=== PATIENT | female | born 1990 | race Caucasian/White ===

== ENCOUNTER 2021-01-23 01:01 | Emergency (ER) | payer OTHER, SELFPAY ==
--- NOTE | ~2021-01-23 | CT_ITS ---
EXAMINATION: CT abdomen pelvis w con DATE: 01/23/2021 06:20 INDICATION: Right lower quadrant abdominal pain TECHNIQUE: Computed tomography (CT) of the abdomen and pelvis was performed with 100 cc Omnipaque 350 intravenous contrast. Automated exposure control and iterative reconstruction technique were employe d. Exam dose: 209.98 mGy-cm total exam DLP. COMPARISON: None. FINDINGS: Right lower lobe calcified pulmonary granuloma. The lung bases are clear of infiltrate or c onsolidation. Normal heart size. No pericardial or pleural effusion. The liver, gallbladder, bile ducts, pancreas, pancreatic duct, spleen, adrenal glands are unremarkabl e. Very small right renal cyst. Approximately 2 mm nonobstructing left kidney stone. No suspicious renal mass lesion. No ureteral siena culus or hydroureteronephrosis is evident. The uterus and urinary bladder are unremarkable. 2.5 x 4.6 cm peripherally enhancing right ovarian cyst. Up to 2.1 cm left ovarian cyst. There is mild free fluid in the right adnexal area and anterior and posterior cul-de-sacs, likely due to ruptured right ovarian cyst. No bowel obstruction. No intraperitoneal free air. Included skeletal structures are unremarkable. IMPRESSION: Ruptured right up to 4.6 cm ovarian cyst with mild free fluid in the pelvis 2.1 cm left ovarian cyst Small nonobstructing left kidney stone Very small right renal cyst Reviewed, dictated and finalized at [facility]. Reviewed, dictated and finalized at [facility]. IMPRESSION: Ruptured right up to 4.6 cm ovarian cyst with mild free fluid in t he pelvis 2.1 cm left ovarian cyst Small nonobstructing left kidney stone Very small right renal cyst
--- NOTE | ~2021-01-23 | US_ITS ---
US pelvic complete DATE: 01/23/2021 04:18 INDICATION: Right pelvic pain TECHNIQUE: Real-time imaging via transabdominal and transvaginal approaches COMPARISON: 01/23/2021 CT abdomen pelvis FINDINGS: The uterus measures 8.3 cm height, 3.5 cm AP dimension. The central endometrial echo measur es 6 mm AP dimension. Up to 2.1 cm left ovarian cyst. Up to 3.5 cm right ovarian cyst is suggested. Vascular flow to both o varies is documented on Doppler color flow imaging. No free pelvic fluid is noted. IMPRESSION: Bilateral ovarian cysts Reviewed, dictated and finalized at [facility]. Reviewed, dictated and finalized at [facility]. IMPRESSION: Bilateral ovarian cysts
[2021-01-23 01:05] VITALS: BP 121/61; PULSE 71; RESP 18; TEMP 36.6; O2SAT 100
[2021-01-23 01:24] LABS: Basophils Percent Auto 0.7 % (0.2-1.2); Eosinophils Absolute Auto 0.1 K/mm3 (0-0.3); Eosinophils Percent Auto 1.1 % (0-4.4); Hematocrit 41.3 % (37.0-47.0); Hemoglobin 14.1 g/dL (12.0-15.0); Immature Granulocyte Absolute 0.01 K/mm3 (0.00-0.031); Immature Granulocyte Percent A 0.2 % (0-0.5); Lymphocytes Absolute Auto 2.58 K/mm3 (0.9-3.2); Mean Corpuscular HGB Conc 34.1 g/dl (32-36); Mean Corpuscular Hemoglobin 32.4 pg (26-34); Mean Corpuscular Volume 94.9 fl (80-100); Monocytes Absolute Auto 0.7 K/mm3 (0.1-0.6); Monocytes Percent Auto 11.9 % (2.6-8.5); Neutrophils Absolute Auto 2.7 K/mm3 (1.3-6.7); Neutrophils Percent Auto 44.1 % (45.5-73.1); Platelet Count Result 218 k/mm3 (150-375); Red Blood Count 4.35 M/mm3 (4.2-5.4); Red Cell Distribution Width 11.9 % (11.5-14.5); White Blood Count 6.1 K/mm3 (4.5-10.0)
[2021-01-23 01:37] LABS: Alanine Aminotransferase 16 U/L (4-35); Albumin Level 4.7 g/dL (3.5-5.1); Alkaline Phosphatase 33 U/L (38-126); Anion Gap 8 mmol/L (8-16); Aspartate Amino Transferase 33 U/L (14-36); Blood Urea Nitrogen 14 mg/dL (7-17); Calcium 9.1 mg/dL (8.4-10.2); Carbon Dioxide 27 mmol/L (22-30); Chloride 102 mmol/L (98-107); Estimated CRCL calculation 87 ml/min; Estimated Glomerular Filt Rate > 60; Glucose 103 mg/dL (65-105); Lipase 127 U/L (23-300); Potassium 3.6 mmol/L (3.4-5.0); Sodium 137 mmol/L (137-145)
[2021-01-23 01:58] LABS: Add Urine Microscopic? NO; Appearance Urine Clear (Clear); Bilirubin Urine Negative (Negative); Blood Urine Negative (Negative); Color Urine Yellow (Yellow); Glucose Urine UA Negative (Negative); Ketones Urine Negative (Negative); Leukocyte Esterase Ur Negative LEU/UL (Negative); Nitrate Urine Negative (Negative); Protein Urine Negative (Negative); Specific Grav Ur 1.018 (1.001-1.035); Urobilinogen Urine Negative mg/dL (<2.0)
--- NOTE | 2021-01-23 02:33 | ED.ABDPAIN ---
HPI - Abdominal Pain General Chief Complaint: Abdominal Pain <Jonathan Hodges MD - Last Filed: 01/23/21 07:01> Stated Complaint: during intercourse - rt abd pain x 2 hours <MD Chrystal Martins Last Filed: 01/23/21 07:01> Time Seen by Provider: 01/23/21 02:16 <Jonathan Hodges MD - Last Filed: 01/23/21 07:01> Source: patient and RN notes reviewed <MD Chrystal Martins Last Filed: 01/23/21 07:01> Mode of arrival: ambulatory <Jonathan Hodges MD - Last Filed: 01/23/21 07:01> Limitations: no limitations <MD Chrystal Martins Last Filed: 01/23/21 07:01> History of Present Illness HPI narrative: Patient is 30 years old white female presents with sudden onset right lower quadrant pain while having vaginal intercourse. Patient denies any nausea, vomiting, fever, chills, vaginal bleeding or discharge. History of ovarian cyst. Patient denies radiation of pain, pain gets worse with movement, slightly better at rest. <Jonathan Hodges MD - Last Filed: 01/23/21 07:01> Related Data Home Medications: Home Medications Medication Instructions Recorded Confirmed cetirizine [Zyrtec] 10 mg PO DAILY 01/23/21 <Jonathan Hodges MD - Last Filed: 01/23/21 07:01> Allergies/Adverse Reactions: Allergies Allergy/AdvReac Type Severity Reaction Status Date / Time adhesive Allergy Rash Verified 01/23/21 01:08 suture Allergy Rash Verified 01/23/21 01:08 <Jonathan Hodges MD - Last Filed: 01/23/21 07:01> Review of Systems Review of Systems: Narrative: CONSTITUTIONAL: Denies fever, chills, or sweats. EYES: Denies visual changes, redness, or discharge. ENT: Denies rhinorrhea, congestion, sore throat, or otalgia. CARDIOVASCULAR: Denies chest pain, palpitations, or edema. RESPIRATORY: Denies cough or dyspnea. GASTROINTESTINAL: Denies abdominal pain, nausea, vomiting, or diarrhea. GENITOURINARY: Denies dysuria or hematuria. SKIN: Denies rash or itching. MUSCULOSKELETAL: Denies back pain, joint pain, or myalgia. NEUROLOGIC: Denies headache, numbness, or weakness. PSYCHIATRIC: Denies anxiety or depression. <Jonathan Hodges MD - Last Filed: 01/23/21 07:01> [facility] Social History Social History: Social History Gender identity (if verbalized by the patient): Female Sexual Orientation (if Verbalized by the Patient): Straight or Heterosexual <Jonathan Hodges MD - Last Filed: 01/23/21 07:01> Exam Narrative: Exam Narrative: General appearance: Well-developed, well-nourished Skin: Normal color Head: Normocephalic, nontraumatic Eyes: Clear conjunctiva ENT: Oropharynx normal, ears normal, nose normal Neck: Supple, nontender Chest and respiratory: Airway patent, no respiratory distress, no accessory muscle use Heart: Regular rate/rhythm Abdomen: Soft, mild tenderness right lower abdomen, no organomegaly, quiet bowel sounds Vascular: Normal peripheral pulses, normal capillary refill. 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 I reexamined the patient, patient states that pain has much improved however she still has mild tenderness in the right lower quadrant area. Examination there is mild tenderness. I discussed this case with Dr. Babin who was here at the bedside and evaluated the patient. As per the conversation patient is stable to be discharged home
--- NOTE | 2021-01-23 03:54 | PC.NURSE ---
Patient in US at this time.
[2021-01-23 04:36] VITALS: BP 100/60; PULSE 79; RESP 18; O2SAT 98
[2021-01-23 06:48] VITALS: BP 104/62; PULSE 61; RESP 18; O2SAT 99
[2021-01-23 09:29] VITALS: BP 132/78; PULSE 78; RESP 18; O2SAT 99
--- NOTE | 2021-01-23 13:01 | PM.CNGS ---
Assessment and Plan Assessment and plan (1) Rupture of cyst of right ovary: Code(s): N83.201 - Unspecified ovarian cyst, right side Status: Acute Assessment and Plan: Final report on CT scan which was not available to me at the time of my evaluation suggests a ruptured almost 5 cm right ovarian cyst. The clinical Evaluation suggests appendicitis is very unlikely and is more consistent with a ruptured ovarian cyst. I explained to the patient that I did not feel that this represented acute appendicitis. I explained that it was most likely a ruptured ovarian cyst. I do not feel she needs additional evaluation and can go home from the emergency room. Should her pain recur, she should go back to the emergency room for further evaluation. No further follow-up with me is needed unless symptoms recur. History of Present Illness Consult details Consult date: 01/23/21 Reason for consult: abdominal pain Narrative: the patient is a 30-year-old woman who about midnight last night was engaged in intercourse with her fiance. She started developing severe right lower quadrant abdominal pain that radiated to the lower abdominal midline just above the pelvis. This pain was very excruciating. It persisted a couple of hours and she decided she better come to the emergency room. Her last menstrual period ended around the 29 of December. It was a prolonged period of 2 weeks menstruation. She feels as though she is due to start a menstrual period soon. She has had problems with painful ovarian cysts in the past. She had no nausea vomiting fever or chills. Her pain is gotten better since she has been in the emergency room. In fact, she has no pain now and feels back to normal. She has felt that way for approximately 2 hours from the time I saw her which was about 9:00 a.m.. The patient had a CT scan of the abdomen and pelvis as well as a pelvic ultrasound. There was evidence of ovarian cysts on the tele radiology reports. There was also noted on the CT scan a tubular structure in the right lower quadrant that might possibly be the appendix and early appendicitis. I was asked by the emergency room physician, Dr. Robles, to evaluate the patient. Review of Systems Review of Systems: All systems reviewed & are unremarkable except as noted in HPI and below Constitutional: Constitutional: Denies body ache(s), Denies chills, Denies fever(s), Denies headache(s) and Denies poor appetite Cardiovascular: Cardiovascular: Denies chest pain, Denies diaphoresis, Denies dyspnea and Denies paroxysmal nocturnal dyspnea Respiratory: Respiratory: Denies chest congestion, Denies cough and Denies dyspnea Gastrointestinal: Gastrointestinal: Reports as per HPI, Reports abdominal pain, Denies nausea and Denies vomiting Genitourinary: Genitourinary: Reports as per HPI and Reports menorrhagia Integumentary/Breasts: Skin/Breast: Denies lesions and Denies rash [facility] Social History Social History Gender identity (if verbalized by the patient): Female Sexual Orientation (if Verbalized by the Patient): Straight or Heterosexual Meds Home Medications and Allergies Home Medications Medication Instructions Recorded Confirmed Type cetirizine [Zyrtec] 10 mg PO DAILY 01/23/21 History Allergies Allergy/AdvReac Type Severity Reaction Status Date / Time adhesive Allergy Rash Verified 01/23/21 01:08 suture Allergy Rash Verified 01/23/21 01:08 Vital Signs Vital Signs - 24 hr 01/23/21 01:05 01/23/21 04:36 01/23/21 06:48 Temperature 36.6 C Pulse Rate 71 79 61 Respiratory Rate 18 18 18 Blood Pressure 121/61 100/60 104/62 Pulse Oximetry 100 98 99 01/23/21 09:29 Temperature Pulse Rate 78 Respiratory Rate 18 Blood Pressure 132/78 Pulse Oximetry 99 Exam Const: General: comfortable, no acute distress, alert and awake HENMT: Head: normocephalic and atraumatic Mouth: Y
== END 2021-01-23 09:36 | disposition home or self-care (01) ==
PROVIDERS: Emergency Medicine; Emergency Provider Family Medicine; PCP Family Medicine
DX: N83.201 Unspecified ovarian cyst, right side (principal)
CPT/HCPCS: 36415; 74177; 76856; 80053; 81003; 81025; 83690; 85025; 99284; Q9967

== ENCOUNTER → 2021-05-13 13:10 | Outpatient (CLI) | payer OTHER, SELFPAY ==
--- NOTE | ~2021-05-13 | US_ITS ---
EXAMINATION: US transvaginal EXAM DATE: 05/13/2021 13:35 INDICATION: Pelvic pain. TECHNIQUE: Pelvic transabdominal and transvaginal sonogram was performed. There are multiple graysca le and Doppler images available for interpretation. Comparison is made to prior examination from 2020. FINDINGS: Uterus measures 7.3 x 3.5 x 4.5 cm, is retroverted and morphologically normal. Endometria l stripe measures 8 mm, within normal limits. There is no free pelvic fluid. Right adnexa: The ovary measures 2.8 x 3.3 x 3.3 cm and is morphologically normal. Ovarian vascular f low confirmed. Left adnexa: The ovary measures 3.0 x 3.1 x 2.5 cm and is morphologically normal. Ovarian vascular fl ow confirmed. IMPRESSION: 1. Unremarkable pelvic ultrasound exam. Reviewed, dictated and finalized at [facility].
== END ==
PROVIDERS: Visit Provider Nurse Practitioner
DX: R10.2 Pelvic and perineal pain (principal)
CPT/HCPCS: 76830

== ENCOUNTER 2023-01-09 17:54 | Emergency (ER) | payer OTHER, SELFPAY ==
[2023-01-09 18:09] VITALS: BP 108/59; PULSE 61; RESP 16; TEMP 36.9; O2SAT 100
--- NOTE | 2023-01-09 18:12 | ED.SKABFB ---
HPI - Skin/Abscess/Foreign Bdy General Chief complaint: Wound/Laceration Stated complaint: lt hand pinky finger injury Source: patient and RN notes reviewed History of Present Illness HPI narrative: 32 yo F presents to urgent care with complaints of a laceration to her left pinky finger. 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 Pt denies any numbness, tingling, or any other injury. Pt states she immediately washed the wound with soap and water. Pt is unknown when her last Tdap occurred. Related Data Home Medications Medication Instructions Recorded Confirmed cetirizine 10 mg tablet (Zyrtec) 10 mg PO DAILY 01/23/21 Allergies Allergy/AdvReac Type Severity Reaction Status Date / Time adhesive Allergy Rash Verified 01/09/23 18:21 suture Allergy Rash Verified 01/09/23 18:21 Review of Systems Review of Systems: CONSTITUTIONAL: Denies fever, chills, or sweats. EYES: Denies visual changes, redness, or discharge. ENT: Denies otalgia and sore throat CARDIOVASCULAR: Denies chest pain, palpitations, or edema. RESPIRATORY: Denies cough or dyspnea. GASTROINTESTINAL: Denies abdominal pain, nausea, vomiting, or diarrhea. GENITOURINARY: Denies dysuria or hematuria. SKIN: laceration to left pinky finger MUSCULOSKELETAL: Denies back pain, joint pain, or myalgia. NEUROLOGIC: Denies headache, numbness, or weakness. Pertinent positives per HPI. PMFSH Social History Social History Gender identity (if verbalized by the patient): Female Sexual Orientation (if Verbalized by the Patient): Straight or Heterosexual Comments At the time of my signature, I reviewed and agree with the nursing past medical, surgical, social, and family history. There is no relevant family history pertinent to the patient complaint. Exam Narrative: GENERAL: This is a well-nourished, well-developed patient, in no apparent distress. HEAD: normocephalic, atraumatic. EYES: PERRL. Sclera clear/white. Vision is grossly intact. EARS: External ears normal, auditory canals clear and without drainage, TMs normal without perforation. Hearing grossly intact. NOSE: External nose normal with no obvious nasal discharge, nares without redness, no rhinorrhea. THROAT: Mucous membranes moist, posterior pharynx clear. NECK: Neck supple, non-tender without lymphadenopathy, masses or thyromegaly. CARDIOVASCULAR: Regular rate RESPIRATORY: no respiratory distress GASTROINTESTINAL: Abdomen soft, non-tender, nondistended. Bowel sounds are active. No hepato-splenomegaly, or palpable masses. No guarding. SKIN: warm, intact with no suspicious lesions or rash, good texture and turgor. Superficial laceration to left pinky finger, approximtely 2 cm in length, down finger. NO bleeding. NEURO: awake, alert, and oriented to person, place and time. There were no obvious focal neurologic abnormalities. EXTREMITIES: No clubbing, cyanosis, or edema. No joint tenderness, effusion, or edema noted. Course Course Level of Care: Express Care Visit Vital Signs Vital signs: Vital Signs Temperature 98.5 F 01/09/23 18:09 Pulse Rate 61 01/09/23 18:09 Respiratory Rate 16 01/09/23 18:09 Blood Pressure 108/59 L 01/09/23 18:09 Pulse Oximetry 100 01/09/23 18:09 Oxygen Delivery Room Air 01/09/23 18:09 Temperature 98.5 F 01/09/23 18:09 Pulse Rate 61 01/09/23 18:09 Respiratory Rate 16 01/09/23 18:09 Blood Pressure 108/59 L 01/09/23 18:09 Pulse Oximetry 100 01/09/23 18:09 Oxygen Delivery Room Air 01/09/23 18:09 reviewed. Procedures Laceration Laceration 1: Date: 01/09/23 Time: 18:15 Site: upper extremity Side (If applicable): left Size (cm): 2 Description: linear Depth: simple, single layer Local Anesthetic: none Pre-repair: irrigated and other (soaked in saline and w
[2023-01-09] MEDS: TETANUS,DIPHTHERIA,AC PERTUSSIS ADULT (0.5 ML) BOOSTRIX IM (18:23)
== END 2023-01-09 18:23 | disposition home or self-care (01) ==
PROVIDERS: Emergency Provider Nurse Practitioner Family
DX: S61.217A Laceration without foreign body of left little finger without damage to nail, initial encounter (principal); Z23 Encounter for immunization; W25.XXXA Contact with sharp glass, initial encounter
CPT/HCPCS: 12001; 90471; 90715; 99212; G0463

== ENCOUNTER 2023-04-22 10:58 | Emergency (ER) | payer OTHER, SELFPAY ==
[2023-04-22 11:10] VITALS: BP 116/69; PULSE 78; RESP 16; TEMP 36.6; O2SAT 99
--- NOTE | 2023-04-22 11:26 | ED.URI ---
HPI - URI/Sore Throat General Chief Complaint: Upper Respiratory Infection Stated Complaint: SORE THROAT/CONGESTION Time Seen by Provider: 04/22/23 11:26 Source: patient, RN notes reviewed and old records reviewed Mode of arrival: ambulatory Limitations: no limitations History of Present Illness HPI Narrative: 32-year-old female who presents to [facility] with complaints of not feeling well all week with cough,sinus congestion and drainage, head pressure now and sore throat with symptoms increasing since yesterday. Patient states voice feels raspy has sore throat especially with swallowing, Patient Patient denies any known sick contacts, Patient has not taken any OTC medications for her symptoms. Patient reports no known fevers, chills or sweats or body aches. MD elicited complaint: cough and sore throat Pertinent past history: sinusitis, seasonal allergies and other (strep throat) Onset (ago): week(s) (increase symptom past 24 hours) Pain scale (0-10): 4 Able to tolerate fluids by mouth: Yes Treatments prior to arrival: none Related Data Allergies Allergy/AdvReac Type Severity Reaction Status Date / Time adhesive Allergy Rash Verified 04/22/23 11:05 suture Allergy Rash Verified 04/22/23 11:05 Review of Systems Review of Systems: CONSTITUTIONAL: Denies malaise, chills, sweats, or fever. EYES: Denies visual changes, redness, or discharge. ENT: Reports rhinorrhea, congestion,positive for sinus pain/pressure, no otalgia positive for sore throat. CARDIOVASCULAR: Denies chest pain, palpitations, or edema. RESPIRATORY: Reports cough.? Denies dyspnea. GASTROINTESTINAL: Denies abdominal pain, nausea, vomiting, diarrhea SKIN: Denies rash or itching. MUSCULOSKELETAL: Denies myalgia. NEUROLOGIC: Denies headache. All systems reviewed & are unremarkable except as noted in HPI and below PMFSH Past Medical History Medical History (Updated 04/23/23 @ 08:35 by Kylie Jackson NP) Bronchitis No active medical problems Sinus infection Surgical History Surgical History (Updated 04/23/23 @ 08:32 by Kylie Jackson NP) H/O foot surgery History of inguinal hernia repair Social History Social History (Updated 04/22/23 @ 20:47 by Ele Kerr PA-C) Smoking status: Never smoker Gender identity (if verbalized by the patient): Female Sexual Orientation (if Verbalized by the Patient): Straight or Heterosexual Comments At time of signature, agree with nursing past medical, surgical, social and family history. There is no relevant family history pertinent to the presenting complaint Exam Narrative: GENERAL: Well-appearing, well-nourished, and in no acute distress. HEAD: Normocephalic EYES: PERRLA, conjunctivae clear ENT: Nares clear, turbinates edematous and erythematous, clear discharge. Mucous membranes moist. TM pearly green with dull light reflex bilaterally; no tragal tenderness. Oropharynx erythematous without lesions. Tonsils red enlarged and without exudate, no drooling, no hoarseness, no trismus, uvula midline.post nasal drainage NECK: Supple. No lymphadenopathy CHEST: Clear to auscultation, breath sounds equal. No wheezing, rhonchi, rales, or stridor. No respiratory distress, speaks in full sentences.occasional dry cough SAO2 99% on room air HEART: Regular rate and rhythm. No murmur heard. SKIN: Warm, dry, no rash. NEURO: Alert and oriented x3. PSYCH: Normal mood and affect Course Course Emergency Course: Patient is aware of diagnosis, understands and agrees to treatment plan.? Anticipatory guidance given.? Patient agrees to follow-up as directed and is aware of reasons to seek care at the emergency department. Portions of this record may have been created with voice recognition software Level of Care: Express Care Visit Vital Signs Vital signs: Vital Signs Temperature 36.6 C 04/22/23 11:10 Pulse Rate 78 04/22/23 11:10 Respiratory Rate 16 04/22/23 1
== END 2023-04-22 11:44 | disposition home or self-care (01) ==
PROVIDERS: Emergency Provider Registered Nurse; PCP Internal Medicine
DX: J06.9 Acute upper respiratory infection, unspecified (principal); R05.9 Cough, unspecified; J02.9 Acute pharyngitis, unspecified
CPT/HCPCS: 87081; 87880; 99213; G0463

== ENCOUNTER 2023-04-22 19:50 | Emergency (ER) | payer OTHER, SELFPAY ==
[2023-04-22 19:54] VITALS: BP 140/65; PULSE 95; RESP 14; TEMP 36.9; O2SAT 100
--- NOTE | 2023-04-22 20:44 | ED.FEMALEGU ---
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 Ongoing over the last 2 hours. Reports she has trouble with ovarian cysts often. She felt as though she had 1 rupture tonight. She had some pain in her lower pelvis associated with some nausea. Reports that the pain was a little worse than usual which prompted her to be seen initially. Although now she is feeling much better and is no longer having any pain. Reports she had a subjective fever. Denies vomiting, vaginal bleeding, or dysuria. Related Data Allergies Allergy/AdvReac Type Severity Reaction Status Date / Time adhesive Allergy Rash Verified 04/22/23 11:05 suture Allergy Rash Verified 04/22/23 11:05 Review of Systems Review of Systems: CONSTITUTIONAL: Reports fever GASTROINTESTINAL: Reports abdominal pain, nausea. Denies vomiting GENITOURINARY: Denies dysuria All systems reviewed & are unremarkable except as noted in HPI and below PMFSH Past Medical History Medical History (Updated 04/22/23 @ 20:51 by Ele Kerr PA-C) No active medical problems Social History Social History (Updated 04/22/23 @ 20:47 by Ele Kerr PA-C) Smoking status: Never smoker Gender identity (if verbalized by the patient): Female Sexual Orientation (if Verbalized by the Patient): Straight or Heterosexual Exam Narrative: GENERAL: Well-appearing, well-nourished, and in no acute distress. HEAD: Normocephalic, atraumatic. EYES: EOMI. CHEST: Clear to auscultation. No respiratory distress. No wheezes rales or rhonchi HEART: Regular rate and rhythm. No murmur heard. Normal peripheral pulses. ABDOMEN: Soft, nontender, nondistended, normal active bowel sounds. No CVA tenderness EXTREMITIES: Normal range of motion. No edema. SKIN: Warm, dry, no rash. NEURO: No focal deficits. Alert and oriented x3. PSYCH: Normal mood and affect Course Course Emergency Course: Spoke with patient at length about possible complications of having an ovarian cyst. She reports she no longer has any pain and does not wish to have any further evaluation or management. She was instructed to return at any time if her symptoms worsen Vital Signs Vital signs: Vital Signs Temperature 98.4 F 04/22/23 19:54 Pulse Rate 95 04/22/23 19:54 Respiratory Rate 14 04/22/23 19:54 Blood Pressure 140/65 04/22/23 19:54 Pulse Oximetry 100 04/22/23 19:54 Oxygen Delivery Room Air 04/22/23 19:54 Temperature 98.4 F 04/22/23 19:54 Pulse Rate 95 04/22/23 19:54 Respiratory Rate 14 04/22/23 19:54 Blood Pressure 140/65 04/22/23 19:54 Pulse Oximetry 100 04/22/23 19:54 Oxygen Delivery Room Air 04/22/23 19:54 MDM - Female Genitourinary MDM Narrative Medical decision making narrative: Patient presents to the emergency department for lower abdominal pain. Ongoing over the last couple of hours. Her vitals are normal. Abdominal exam is benign. Reports history of multiple ovarian cysts. Reports her pain felt similar, although it was a little bit worse than usual at the start. Upon examining her and speaking with her she was no longer having any pain. Spoke with patient at length about possible complications of having an ovarian cyst or it rupturing. I did offer further evaluation with labs and imaging. She reports she no longer has any pain and does not wish to have any further evaluation or management. She was instructed to return at any time if her symptoms worsen. 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
== END 2023-04-22 21:01 | disposition home or self-care (01) ==
PROVIDERS: Emergency Provider Physician Assistant; PCP Internal Medicine
DX: R10.2 Pelvic and perineal pain (principal)
CPT/HCPCS: 87081; 87880; 99281

== ENCOUNTER 2023-11-13 10:40 | Outpatient (CLI) | payer OTHER, SELFPAY ==
--- NOTE | ~2023-11-13 | US_ITS ---
EXAMINATION: US soft tissue head and neck DATE: 11/13/2023 10:56 INDICATION: Right facial lymphadenopathy. TECHNIQUE: Multiple grayscale and Doppler ultrasound images of the head and neck were obtained. COMPARISON: None FINDINGS: There is a normal right-sided submandibular lymph node in the patient's area of concern. IMPRESSION: 1. Normal right-sided submandibular lymph node in the patient's area of concern. Reviewed, dictated and finalized at location [facility]. 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 Normal right-sided submandibular lymph node in the patient's area of concern .
== END 2023-11-13 10:41 ==
LOC: MICIMG 10:41
PROVIDERS: PCP Otolaryngology; Visit Provider Otolaryngology
DX: R59.1 Generalized enlarged lymph nodes (principal)
CPT/HCPCS: 76536

== ENCOUNTER 2023-11-20 08:02 | Emergency (ER) | payer OTHER, SELFPAY ==
--- NOTE | 2023-11-20 08:06 | ED.URI ---
HPI - URI/Sore Throat General Chief Complaint: Upper Respiratory Infection Stated Complaint: Fever;Sore Throat;Bodyaches Time Seen by Provider: 11/20/23 08:06 Source: patient Mode of arrival: ambulatory Limitations: no limitations History of Present Illness HPI Narrative: Tamia love a 33 year old patient presenting to the clinic today with complaints of fever, sore throat, chills, and body aches that started last night. She reports highest temperature was a 100? F this morning. Patient did at home COVID test and was negative. MD elicited complaint: sore throat and nasal congestion Related Data Home Medications Medication Instructions Recorded Confirmed No Home Medications 09/17/23 09/17/23 Allergies Allergy/AdvReac Type Severity Reaction Status Date / Time adhesive Allergy Rash Verified 09/17/23 10:10 suture Allergy Rash Verified 09/17/23 10:10 Review of Systems Review of Systems: Pertinent positives per HPI. Patient denies any rash, headache, visual changes, dizziness, shortness of breath, chest pain, palpitations, nausea, vomiting, diarrhea, constipation, abdominal pain, or any urinary issues. PMF Past Medical History Medical History Anxiety Bronchitis No active medical problems Sinus infection Surgical History Surgical History H/O foot surgery (~2022) H/O lumpectomy (~2019) History of inguinal hernia repair (~2017) Status post Mohs surgery (~2022) Family History Family History Father Heart disease Hypertension Mother Depression Anxiety Thyroid disorder Sibling Anxiety Depression Alcoholism Grandparent Cancer Cerebrovascular accident Heart disease Social History Social History Smoking status: Never smoker Gender identity (if verbalized by the patient): Female Sexual Orientation (if Verbalized by the Patient): Straight or Heterosexual Comments At the time of my signature, I reviewed and agree with the nursing past medical, surgical, social, and family history. There is no relevant family history pertinent to the patient complaint. Exam Narrative: General: Well-developed, well nourished, in no apparent distress Head: Normocephalic, atraumatic Eyes: Pupils equally round and reactive to light bilaterally, EOM intact, sclera and conjunctive clear, no discharge, lids normal Ears: TMs intact and clear, ear canals clear, no drainage, grossly hearing normal. Nose: Nares patent, clear discharge, no inflammation, no sinus tenderness. Mouth: Oral pharynx red without lesions or masses, good dentition, MMM. Neck: Supple, trachea midline, no enlargement of anterior or posterior cervical nodes, no thyroid masses or goiter palpable. Cardio: Regular rate and rhythm, s1 and s2 normal, no murmur appreciated. Resp: Clear to auscultation bilaterally, no rhonchi, rales, wheezing or rubs Course Course Emergency Course: Portions of this record may have been created with voice recognition software. Level of Care: Express Care Visit Vital Signs Vital signs: Vital signs reviewed MDM - URI/Sore Throat MDM Narrative Medical decision making narrative: At the time of visit patient is resting comfortably on the exam table. Patient appears to be nontoxic. Labs: Flu and strep test were performed and were negative. We will send strep for culture. Plan: I suspect patient has URI/pharyngitis/viral syndrome. Supportive measures were discussed with the patient and they voiced understanding discharge instructions and agrees to treatment plan. Return precautions reviewed Differential Diagnosis Differential diagnosis: Likely upper respiratory infection, otitis media, sinusitis, viral infection, bronchitis, influenza, pharyngitis and other (COVID) D
[2023-11-20 08:09] VITALS: BP 114/62; PULSE 73; RESP 16; TEMP 37.5; O2SAT 100
== END 2023-11-20 08:30 | disposition home or self-care (01) ==
PROVIDERS: Emergency Provider Nurse Practitioner Family; PCP Internal Medicine
DX: B34.9 Viral infection, unspecified (principal); J06.9 Acute upper respiratory infection, unspecified; J02.9 Acute pharyngitis, unspecified
CPT/HCPCS: 87081; 87804; 87880; 99213; G0463

== ENCOUNTER 2023-11-22 08:30 | Emergency (ER) | payer OTHER, SELFPAY ==
--- NOTE | 2023-11-22 08:36 | ED.URI ---
HPI - URI/Sore Throat General Chief Complaint: Upper Respiratory Infection Stated Complaint: CONGESTION/COLD SYMPTOMS Time Seen by Provider: 11/22/23 08:45 Source: patient, RN notes reviewed and old records reviewed Mode of arrival: ambulatory Limitations: no limitations History of Present Illness HPI Narrative: 33-year-old female presents to the [facility] with complaints of with cold symptoms since Sunday, 3 days. Was seen on Sunday with the same symptoms tested negative for flu, COVID, strep. Strep culture also negative. Patient states that she has a sore throat, nasal congestion, reports fevers Has not taken anything for her symptoms Related Data Home Medications Medication Instructions Recorded Confirmed No Home Medications 09/17/23 11/22/23 Allergies Allergy/AdvReac Type Severity Reaction Status Date / Time adhesive Allergy Rash Verified 11/22/23 08:41 suture Allergy Rash Verified 11/22/23 08:41 Review of Systems Review of Systems: All systems reviewed & are unremarkable except as noted in HPI and below Constitutional: Constitutional: Reports no additional constitutional complaints Eyes: Eyes: Reports no additional eye complaints ENT: Reports as per HPI Cardiovascular: Cardiovascular: Reports no additional cardiovascular complaints, Denies chest pain and Denies dyspnea Respiratory: Respiratory: Reports no additional respiratory complaints, Denies chest congestion, Denies cough and Denies dyspnea Gastrointestinal: Gastrointestinal: Reports no additional gastrointestinal complaints, Denies abdominal pain, Denies nausea and Denies vomiting Musculoskeletal: Musculoskeletal: Reports no additional musculoskeletal complaints Integumentary/Breasts: Skin/Breast: Reports system reviewed and no additional complaints, except as docu Neurologic: Reports system reviewed and no additional complaints, except as documented Psychiatric: Psychiatric: Reports no additional psychiatric complaints Allergic/Immunologic: Allergic/Immunologic: Reports no additional allergic/immunologic complaints [facility] Past Medical History Medical History Anxiety Bronchitis No active medical problems Sinus infection Surgical History Surgical History H/O foot surgery (~2022) H/O lumpectomy (~2018) History of inguinal hernia repair (~2016) Status post Mohs surgery (~2022) Family History Family History Father Heart disease Hypertension Mother Depression Anxiety Thyroid disorder Sibling Anxiety Depression Alcoholism Grandparent Cancer Cerebrovascular accident Heart disease Social History Social History Smoking status: Never smoker Gender identity (if verbalized by the patient): Female Sexual Orientation (if Verbalized by the Patient): Straight or Heterosexual Comments At the time of my signature, I reviewed and agree with the nursing past medical, surgical, social, and family history. There is no relevant family history pertinent to the patient complaint. Exam Const: General: cooperative, healthy appearing, comfortable, no acute distress, well developed, alert and well nourished Nutritional Appearance: well nourished Orientation/consciousness: patient oriented x3 Limitations: no limitations HENMT: Head: normal to inspection Ears: hearing grossly normal bilaterally, external ears normal, TM's normal bilaterally, mastoids normal and no periauricular adenopathy Face/Nose/Sinus: Normal external nose present, Normal nares present, Normal nasal mucous membranes and turbinates present, No nasal discharge present, normal facial exam, sinuses nontender, face symmetric and No erythema Face and sinus: normal facial exam and face symmetric Mouth: Yes Normal oral and palatal mucosa present, Ye
[2023-11-22 08:46] VITALS: BP 113/60; PULSE 91; RESP 16; TEMP 36.9; O2SAT 99
== END 2023-11-22 09:17 | disposition home or self-care (01) ==
PROVIDERS: Emergency Provider Nurse Practitioner; PCP Internal Medicine
DX: J06.9 Acute upper respiratory infection, unspecified (principal); Z20.822 Contact with and (suspected) exposure to COVID-19; Z85.828 Personal history of other malignant neoplasm of skin
CPT/HCPCS: 87426; 87804; 99213; G0463

== ENCOUNTER 2024-02-14 08:50 | Emergency (ER) | payer OTHER, SELFPAY ==
[2024-02-14 09:20] VITALS: BP 97/63; PULSE 61; RESP 16; TEMP 36.9; O2SAT 100
--- NOTE | 2024-02-14 09:41 | ED.GENADULT ---
HPI - General Adult General Chief complaint: Upper Respiratory Infection Stated complaint: SORE THROAT/HEAD PRESSURE/TIRED/STREP EXPOSURE Source: patient, RN notes reviewed and old records reviewed Mode of arrival: ambulatory Limitations: no limitations History of Present Illness HPI narrative: by 3-year-old female presents to [facility] with complaints of sore throat, headache, postnasal drip this started 2-3 days ago. Patient states not improving and then son tested positive for strep last p.m.. Patient denies cough, congestion. Related Data Home Medications Medication Instructions Recorded Confirmed cetirizine 10 mg tablet (Zyrtec) 10 mg PO DAILY 02/14/24 02/14/24 Allergies Allergy/AdvReac Type Severity Reaction Status Date / Time adhesive Allergy Rash Verified 02/14/24 09:37 suture Allergy Rash Verified 02/14/24 09:37 Review of Systems Constitutional: Constitutional: Reports no additional constitutional complaints, Denies body ache(s), Denies chills, Denies fatigue, Denies fever(s) and Reports headache(s) Eyes: Eyes: Reports no additional eye complaints and Denies blurry vision ENT: Reports system reviewed and no additional complaints, except as documented, Denies vertigo, Denies dizziness, Denies ear discharge, Denies otalgia, Denies facial pain, Denies headache(s), Denies nasal congestion, Reports nasal discharge, Reports post nasal drip, Denies sinus pain, Denies sinus pressure and Reports sore throat Cardiovascular: Cardiovascular: Reports no additional cardiovascular complaints, Denies chest pain, Denies chest pain at rest, Denies rapid heart rate and Denies dyspnea Respiratory: Respiratory: Reports no additional respiratory complaints, Denies chest congestion, Denies cough, Denies pain on inspiration, Denies pain with cough and Denies dyspnea Gastrointestinal: Gastrointestinal: Denies abdominal pain, Denies diarrhea, Denies nausea and Denies vomiting Integumentary/Breasts: Skin/Breast: Denies rash Neurologic: Reports system reviewed and no additional complaints, except as documented, Denies vertigo, Denies dizziness and Denies headache(s) Endocrine: Endocrine: Denies fatigue PMFSH Past Medical History Medical History Anxiety Bronchitis No active medical problems Sinus infection Surgical History Surgical History H/O foot surgery (~2022) H/O lumpectomy (~2018) History of inguinal hernia repair (~2016) Status post Mohs surgery (~2022) Family History Family History Father Heart disease Hypertension Mother Depression Anxiety Thyroid disorder Sibling Anxiety Depression Alcoholism Grandparent Cancer Cerebrovascular accident Heart disease Social History Social History Smoking status: Never smoker Gender identity (if verbalized by the patient): Female Sexual Orientation (if Verbalized by the Patient): Straight or Heterosexual Comments At the time of my signature, I reviewed and agree with the nursing past medical, surgical, social, and family history. There is no relevant family history pertinent to the patient complaint. Exam Const: General: cooperative, healthy appearing, no acute distress and well nourished Nutritional Appearance: well nourished Orientation/consciousness: patient oriented x3 Limitations: no limitations HENMT: Head: normal to inspection and normocephalic Ears: external ears normal, TM's normal bilaterally, EAC's normal and mastoids normal Face/Nose/Sinus: normal facial exam Face and sinus: normal facial exam Mouth: Yes Normal oral and palatal mucosa present, Yes oropharynx normal and Yes moist mucous membranes Throat: tonsils normal, uvula midline, normal tonsils, no peritonsillar masses, normal posterior oropharynx, postnasal dr
== END 2024-02-14 09:42 | disposition home or self-care (01) ==
PROVIDERS: Emergency Provider Registered Nurse; PCP Internal Medicine
DX: J02.9 Acute pharyngitis, unspecified (principal)
CPT/HCPCS: 87081; 87880; 99213; G0463

== ENCOUNTER 2024-08-20 08:06 | Emergency (ER) | payer OTHER, SELFPAY ==
--- NOTE | ~2024-08-20 | XR_ITS ---
EXAMINATION: XR chest 2V DATE: 08/20/2024 08:33 INDICATION: Shortness of breath. TECHNIQUE: Frontal and lateral views of the chest were obtained. COMPARISON: CT abdomen and pelvis 01/23/2021 FINDINGS: There is mild scarring at the lung apices. A calcified right lung nodule is consistent with old granulomatous disease. No pleural effusion or pneumothorax. The heart size is normal. IMPRESSION: 1. Mild scarring at the lung apices. Reviewed, dictated and finalized at location []
[2024-08-20 08:11] VITALS: BP 105/70; PULSE 67; RESP 16; TEMP 36.4; O2SAT 97
--- NOTE | 2024-08-20 08:54 | ED_ITS ---
HPI - General Adult General Chief complaint: Upper Respiratory Infection Stated complaint: Chest Congestion Time Seen by Provider: 08/20/24 08:20 Source: patient Mode of arrival: ambulatory Limitations: no limitations History of Present Illness HPI narrative: 33 yo F presents with c/o pain when breathing. Started yesterday evening. States pain is to center of chest and can feel it all the way up into her throat. Pain is only when breathing. States im away of every breathing i take because i can feel it . pt not in any pain distress. Denies URI symptoms. States i feel fine. i have a history of a spontaneous pneumo and my son had pneumonia last week so wanted to get it checked out . Denies shortness of breath. All systems reviewed and negative except as noted above. Related Data Home Medications Medication Instructions Recorded Confirmed No Home Medications 08/20/24 08/20/24 Allergies Allergy/AdvReac Type Severity Reaction Status Date / Time adhesive Allergy Rash Verified 08/20/24 08:18 suture Allergy Rash Verified 08/20/24 08:18 Review of Systems Review of Systems: CONSTITUTIONAL: Denies fever, chills, or sweats. EYES: Denies visual changes, redness, or discharge. ENT: Denies rhinorrhea, congestion, sore throat, or otalgia. CARDIOVASCULAR: Denies chest pain, palpitations, or edema. RESPIRATORY: Denies cough or dyspnea. Reports pain with breathing. GASTROINTESTINAL: Denies abdominal pain, nausea, vomiting, or diarrhea. GENITOURINARY: Denies dysuria or hematuria. SKIN: Denies rash or itching. MUSCULOSKELETAL: Denies back pain, joint pain, or myalgia. NEUROLOGIC: Denies headache, numbness, or weakness. PSYCHIATRIC: Denies anxiety or depression. All other systems reviewed are negative, except as documented in HPI. [facility] Past Medical History Medical History Anxiety Bronchitis No active medical problems Sinus infection Surgical History Surgical History H/O foot surgery (~2022) H/O lumpectomy (~2018) History of inguinal hernia repair (~2016) Status post Mohs surgery (~2022) Family History Family History Father Heart disease Hypertension Mother Depression Anxiety Thyroid disorder Sibling Anxiety Depression Alcoholism Grandparent Cancer Cerebrovascular accident Heart disease Social History Social History Smoking status: Never smoker Gender identity (if verbalized by the patient): Female Sexual Orientation (if Verbalized by the Patient): Straight or Heterosexual Comments At time of signature, agree with nursing past medical, surgical, social and family history. There is no relevant family history pertinent to the presenting complaint. Course Course Level of Care: [facility] Care Visit Vital Signs Vital signs: Vital Signs Temperature 36.4 C 08/20/24 08:11 Pulse Rate 67 08/20/24 08:11 Respiratory Rate 16 08/20/24 08:11 Blood Pressure 105/70 08/20/24 08:11 Pulse Oximetry 97 08/20/24 08:11 Temperature 36.4 C 08/20/24 08:11 Pulse Rate 67 08/20/24 08:11 Respiratory Rate 16 08/20/24 08:11 Blood Pressure 105/70 08/20/24 08:11 Pulse Oximetry 97 08/20/24 08:11 Oxygen Delivery Room Air 08/20/24 08:14 Medical Decision Making MDM Narrative Medical decision making narrative: Patient is aware of diagnosis, understands and agrees to treatment plan. Anticipatory guidance given. Patient agrees to follow-up as directed and is aware of reasons to seek care at the emergency department. Portions of this record may have been created with voice recognition software No findings on chest x-ray to explain patient's pain. Patient is stable. Well- appearing. Offered to try medication at [facility] to treat for indigestion due to feeling pain in throat and patient did not feel was necessary. Plans to follow-up with her primary care physician. Will go to ER for any worsening of symptoms. Vital Signs Vital Signs: Vital Signs Temperature 36.4 C 08/20/24 08:11 Pulse Rate 67 08/20/24 08:11 Respiratory Rate 16 08/20/24 08:11 Blood Pressure 105/70 08/20/24 08:11 Pulse Oximetry 97 08/20/24 08:11 Temperature 36.4 C 08/20/24 08:11 Pulse Rate 67 08/20/24 08:11 Respiratory Rate 16 08/20/24 08:11 Blood Pressure 105/70 08/20/24 08:11 Pulse Oximetry 97 08/20/24 08:11 Oxygen Delivery Room Air 08/20/24 08:14 Imaging Data My impression: agree with radiologist Radiologist's impression: EXAMINATION: XR chest 2V DATE: 08/20/2024 08:33 INDICATION: Shortness of breath. TECHNIQUE: Frontal and lateral views of the chest were obtained. COMPARISON: CT abdomen and pelvis 01/23/2021 FINDINGS: There is mild scarring at the lung apices. A calcified right lung nodule is consistent with old granulomatous disease. No pleural effusion or pneumothorax. The heart size is normal. IMPRESSION: 1. Mild scarring at the lung apices. Discharge Plan Discharge Clinical Impression: Pain aggravated by breathing Patient Disposition: Home, Self-Care Condition: Stable Instructions: General Patient Instructions Additional Instructions: Findings on your chest x-ray today to explain your pain. Follow-up with your primary care physician for further evaluation. Your having chest pain, shortness of breath, difficulty breathing go to the ER Prescriptions: No Action No Home Medications Follow-up/Referrals: UNKNOWN,DOCTOR [Primary Care Provider] - Time of Disposition: 08:58
== END 2024-08-20 09:00 | disposition home or self-care (01) ==
PROVIDERS: Emergency Provider Nurse Practitioner Family
DX: R07.1 Chest pain on breathing (principal)
CPT/HCPCS: 71046; 99213; G0463

== ENCOUNTER 2025-05-06 20:21 | Emergency (ER) | payer OTHER, SELFPAY ==
--- NOTE | ~2025-05-06 | XR_ITS ---
EXAM: XR hand LT min 3V DATE: 05/06/2025 21:05 HISTORY: Animal Bite . COMPARISON: None available. FINDINGS: Normal mineralization. No fracture or dislocation. No lytic or blastic lesion. Joint space s are maintained. No erosion or periosteal change. Soft tissues within normal limits. IMPRESSION: No acute osseous finding in the left hand. Reviewed, dictated and finalized at location K.
--- OUTSIDE RECORDS SUMMARY | 2025-05-06 20:23 | XMS_ITS | Encounter Summary ---
Author Organization [employer] Address [address] [place] [address] Care Team Providers Care Laser Set Up Operator Name Role Phone Spencer Ramirez MD Primary Care Provider [phone] Encounter Details Date Type Department Care Team (Late st Contact Info) Description 04/02/2025 Results Follow-Up [facility] at [facility] [place] [address] [place] [address] Dennise Ortiz MD [address] [place] [address] LIPID PANEL, COMPREHENSIVE METABOLIC PANEL, CBC WITH DIFFERENTIAL, TSH Social History Tobacco Use Types Packs/Day Years Used Date Smoking Tobacco: Never Smokeless Tobacco: Never Alcohol Use Standard Drinks/Week Comments Yes 1 (1 standard drink = 0.6 oz pur e alcohol) MODERATE Comments No Sex and Gender Information Value Date Recorded Sex Assigned at Not on file Legal Sex Female 2:08 PM CDT Gender Identity Not on file Sexual Orientation Not on file documented as of this encounter Plan of Treatment Not on file documented as of this encounter Visit Diagnoses Not on filedocumented in this encounter Care Teams Laser Set Up Operator Relationship Specialty Start Date End Date Spencer Ramirez MD [address] [place] [address] [address] PCP - General Internal Medicine 12/01/19 documented as of this encounter
--- OUTSIDE RECORDS SUMMARY | 2025-05-06 20:23 | XMS_ITS | Encounter Summary ---
Author Organization [employer] Address [address] [place] [address] Care Team Providers Care Industrial Spray Painter Name Role Phone Spencer Ramirez MD Primary Care Provider [phone] Encounter Details Date Type Department Care Team (Late st Contact Info) Description 05/05/2025 External Device Data [facility] ABSTRACTION Provider, Abstract NO ADDRESS ON FILE Social History Tobacco Use Types Packs/Day Years [...] on filedocumented in this encounter Care Teams Industrial Spray Painter Relationship Specialty Start Date End Date Spencer Ramirez MD [address] [place] [address] PCP - General Internal Medicine 12/01/19 documented as of this encounter
--- OUTSIDE RECORDS SUMMARY | 2025-05-06 20:23 | XMS_ITS | Clinical Summary ---
Author Organization [facility] [employer] [place] ID Address [address] [address] Care Team Providers Care Chain Testing Machine Operator Name Role Phone Spencer Ramirez MD Primary Care Provider [phone] Allergies Active Allergy Reactions Criticality Noted Date Comments Adhesive Tape-Silicones Rash Medium 07/06/2020 Skin glue Skin glue Grass Pollen Other (See Comments) Low 05/10/2020 Congested Sulfa (Sulfonamide Antibiotics) Rash Medium 07/06/2020 Skin glue Skin glue Unclassified Drug Rash Medium 07/06/2020 Skin glue Medications Cetirizine (ZyrTEC) 10 mg Capsule Take 1 Capsule by mouth 1 time daily as needed. Active valACYclovir (VALTREX) 1 gram tablet 1 time daily as needed. 0 Active multivitamin (DAILY-TALIB) tablet Take 1 Tablet by mouth daily. Active methylPREDNISol one (MEDROL DOSPACK) 4 mg Tablets, Dose Pack Follow instructions on packet 21 Tablet 0 Active cetirizine (ZyrTEC) 10 mg tablet Take 10 mg by mouth daily. Active valACYclovir (VALTREX) 1 gram tablet Take 1,000 mg by mouth daily. 1 Active fluticasone propionate (FLONASE) 50 mcg/spray [place], Suspension nasal inhalerIndicati ons:Upper respiratory tract infection, unspecified type Administer 2 Sprays in each nostril daily. 16 Gram 2 Active ibuprofen (MOTRIN) 200 mg tabletIndicatio ns:Upper respiratory tract infection, unspecified type Take 3 Tablets (600 mg) by mouth every 6 hours as needed for Pain, Mild. 0 2 Active Active Problems Patient Care Coordination No te Formatting of this note migh t be different from the original. Primary Care: Spencer Ramirez MD Referring Provider: No referring provider defined for this encounter. Other: Problem Noted Date Diagnosed Date Status post left breast lumpectomy 07/06/2020 Overview (10/31/2021): Last Assessment & Plan: Delayed healing of lobectomy w/o evidence of infection. Mild pectoralis strain VS delayed recovery also suspected. Reassurance given, advising Pt to follow through with prior advised therapy utilizing. 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/2020 Encounters Date Type Department Care Team Description 05/05/2025 External Device Data STL ABSTRACTION Provider, Abstract 04/14/2025 External Device Data [facility] ABSTRACTION Provider, Abstract 04/02/2025 Results Follow-Up [facility] [employer] [place] [address] [place] [address] Dennise Ortiz MD LIPID PANEL, COMPREHENSIVE METABOLIC PANEL, CBC WITH DIFFERENTIAL, TSH 04/01/2025 9:00 AM CDT Office Visit [facility] [employer] [place] [address] [place] [address] Screening for condition (Primary Dx) 03/10/2025 External Device Data STL ABSTRACTION Provider, Abstract from Last 3 Months Immunizations Immunization Administration Dates Next Due INFLUENZA VACCINE QUADRIVALENT 3 YR UP PF IM INFLUENZA VACCINE QUADRIVALENT 6 MOS UP IM 07/23 Family History Medical History Relation Name Comments Heart Attack Father Theo Berrios Heart Surgery Father Theo Berrios Hypertension Father Theo Berrios Bipolar Disorder Mother Karen Berrios Bleeding Problem Mother Karen Berrios Depression Mother Karen Berrios Breast Cancer Other 1 GGPAT Prostate Cancer Other 2 GGFATHERPAT Cancer Paternal Grandfather Ian Berrios BONE M ARROW CX Breast Cancer Paternal Grandmother Jessica Dodd NOT S URE Depression Sister Kim Smart Relation Name Status Comments Father Theo Berrios Alive Mother Karen Berrios Alive Other 1 GGPAT Other 2 GGFATHERPAT Paternal Grandfather Ian Berrios Paternal Grandmother Jessica Dodd Sister Kim Smart Alive Social History Tobacco Use Types Packs/Day Years Used Date Smoking Tobacco: Never Smokeless Tobacco: Never Tobacco Cessation:Counseling Given: Not Answered Alcohol Use Standard Drinks/Week Comments Yes 1 (1 standard drink = 0.6 oz pur e alcohol) MODERATE Comments No Sex and Gender Information Value Date Recorded Sex Assigned at Not on file Legal Sex Female 2:08 PM CDT Gender Identity Not on file Sexual Orientation Not on file Last Filed Vital Signs Vital Sign Reading Time Taken Comments Blood Pressure 102/64 04/01/2025 8:55 AM CDT Pulse 95 06/09/2020 2:05 PM CDT Temperature 36.3 C (97.3 F) 06/09/2020 1:54 PM CDT Respiratory Rate 15 06/09/2020 2:05 PM CDT Oxygen Saturation 97% 06/09/2020 2:05 PM CDT Inhaled Oxygen Concentration - - Weight 52.6 kg (116 lb) 04/01/2025 8:55 AM CDT Height 162.6 cm (5' 4) 04/01/2025 8:55 AM CDT Body Mass Index 19.91 04/01/2025 8:55 AM CDT Plan of Treatment Health Maintenance Due Date Last Done Comments HPV/Cotest (21-29) 2011 CERVICAL CANCER SCREENING 2020 HPV/Cotest (30-65) 2020 PAP SMEAR 2020 10/22/2016 (Prev iously completed) COVID-19 Vaccine ( season) 2024 01/06/2021 INFLUENZA VACCINE (#1) 2025 , 07/23/2019, 08/03/2017 DTAP/TDAP/TD VACCINES (7 - Td or Tdap) 01/09/2033 01/09/2023, 07/06/2006, 03/16/1992, Additional history exists HEPATITIS B VACCINES Completed 07/27/2004, 07/09/2003, 06/09/2003 HPV VACCINES Aged Out No longer eligi ble based on patient's age to complete this topic Procedures Procedure Name Priority Date/Time Associated Diagnosis Comments TSH Routine 04/01/2025 8:40 AM CDT Screening for condition CBC WITH DIFFERENTIAL Routine 04/01/2025 8:40 AM CDT Screening for condition COMPREHENSIVE METABOLIC PANEL Routine 04/01/2025 8:40 AM CDT Screening for condition LIPID PANEL Routine 04/01/2025 8:40 AM CDT Screening for condition from Last 3 Months Results * (ABNORMAL) CBC WITH DIFFERENTIAL (04/01/2025 8:40 AM CDT) WBC 3.8 3.8 - 10.8 Thousand/u L [facility] RBC 4.21 3.80 - 5.10 Million/uL [facility] HEMOGLOBIN 13.9 11.7 - 15.5 g/dL [facility] HEMATOCRIT 43.0 35.0 - 45.0 % [facility] MCV 102.1(H) 80.0 - 100.0 fL [facility] MCH 33.0 27.0 - 33.0 pg [facility] MCHC 32.3 32.0 - 36.0 g/dL [facility] Comment: For adults, a slight decrease in the calculated MCHC value (in the range of 30 to 32 g/dL) is most likely not clinically significant; however, it should be interpreted with caution in correlation with other red cell parameters and the patient's clinical condition. RDW 12.1 11.0 - 15.0 % [facility] PLATELETS 199 140 - 400 Thousand/u L [facility] MPV 12.2 7.5 - 12.5 fL [facility] NEUTROPHIL ABSOLUTE 2,010 1,500 - 7,800 cells/uL [facility] LYMPHOCYTE ABSOLUTE 1,326 850 - 3,900 cells/uL [facility] MONOCYTE ABSOLUTE 391 200 - 950 cells/uL [facility] EOSINOPHIL ABSOLUTE 42 15 - 500 cells/uL [facility] BASOPHILS ABSOLUTE 30 0 - 200 cells/uL [facility] NEUTROPHIL 52.9 % [facility] LYMPHOCYTES 34.9 % [facility] MONOCYTE 10.3 % [facility] EOSINOPHILS 1.1 % [facility] BASOPHILS 0.8 % [facility] Comment: Test Performed at: [facility] [address] [place] [address] Vineet Rodriguez MD Blood 04/01/2025 8:40 AM CDT 04/02/2025 2:27 AM CDT us Dennise Ortiz MD HEMATOLOGY ORDERABLES Final Re sult Performing Organization Address [facility] de Phone Number [facility] [phone] [facility] [address] [place] [address] * TSH (04/01/2025 8:40 AM CDT) TSH 2.24 mIU/L [facility] Comment: Reference Range > or = 20 Years 0.40-4.50 Ranges First trimester 0.26-2.66 Second trimester 0.55-2.73 Third trimester 0.43-2.91 Test Performed at: [facility] [address] [place] [phone] Vineet Rodriguez MD Blood 04/01/2025 8:40 AM CDT 04/02/2025 2:27 AM CDT us Dennise Ortiz MD CHEMISTRY ORDERABLES Final Res ult Performing Organization Address [facility] Co de Phone Number [facility] [phone] [facility] [address] [place] [address] * LIPID PANEL (04/01/2025 8:40 AM CDT) Pathologist [facility] CHOLESTEROL 167 <200 mg/dL [facility] HDL 81 > OR = 50 mg/dL [facility] TRIGLYCERIDE 55 <150 mg/dL [facility] LDL CALCULATED 72 mg/dL (calc) [facility] Comment: Reference range: <100 Desirable range <100 mg/dL for primary prevention; <70 mg/dL for patients with CHD or diabetic patients with > or = 2 CHD risk factors. LDL-C is now calculated using the Solis-Rain calculation, which is a validated novel method providing better accuracy than the Friedewald equation in the estimation of LDL-C. Solis SS et al. EUN. 2013;310(19): 3622-9305 (http://education.Mobile Media Content/faq/LDQ234) CHOL/HDL RATIO 2.1 <5.0 (calc) [facility] NON-HDL CHOLESTEROL 86 <130 mg/dL (calc) [facility] Comment: For patients with diabetes plus 1 major ASCVD risk factor, treating to a non-HDL-C goal of <100 mg/dL (LDL-C of <70 mg/dL) is considered a therapeutic option. Test Performed at: [facility] [address] [place] [address] Vineet Rodriguez MD Blood 04/01/2025 8:40 AM CDT 04/02/2025 2:27 AM CDT us Dennise Ortiz MD CHEMISTRY ORDERABLES Final Res ult [facility] [phone] [facility] [address] [place] [address] * (ABNORMAL) COMPREHENSIVE METABOLIC PANEL (04/01/2025 8:40 AM CDT) Pathologist [facility] GLUCOSE 79 65 - 99 mg/dL [facility] Comment: Fasting reference interval BUN 12 7 - 25 mg/dL [facility] CREATININE 0.75 0.50 - 0.97 mg/dL [facility] GFR 107 > OR = 60 mL/min/1. 73m2 [facility] BUN/CREAT RATIO SEE NOTE: 6 - 22 (calc) [facility] Comment: Not Reported: BUN and Creatinine are within reference range. SODIUM 136 135 - 146 mmol/L [facility] POTASSIUM 4.5 3.5 - 5.3 mmol/L [facility] CHLORIDE 101 98 - 110 mmol/L [facility] CO2 27 20 - 32 mmol/L [facility] CALCIUM 9.5 8.6 - 10.2 mg/dL [facility] TOTAL PROTEIN 7.0 6.1 - 8.1 g/dL [facility] ALBUMIN 4.6 3.6 - 5.1 g/dL [facility] GLOBULIN 2.4 1.9 - 3.7 g/dL (calc) [facility] ALBUMIN/GLOBULIN RATIO 1.9 1.0 - 2.5 (calc) [facility] BILIRUBIN TOTAL 2.9(H) 0.2 - 1.2 mg/dL [facility] ALKALINE PHOSPHATASE 35 31 - 125 U/L [facility] AST 25 10 - 30 U/L [facility] ALT 14 6 - 29 U/L [facility] Comment: Test Performed at: [facility] [address] [facility] [place] [address] Vineet Rodriguez MD Blood 04/01/2025 8:40 AM CDT 04/02/2025 2:27 AM CDT us Dennise Ortiz MD CHEMISTRY ORDERABLES Final Res ult [facility] [phone] [facility] [address] [facility] [place] [address] from Last 3 Months Insurance ALLEGIANCE OPEN ACCESS * Guarantor: [employer] Account Type Relation to Patient Date of Phone Billing Address Corporate Employer ATTN: JEROME WHIPPLE [address] [address] Advance Directives For more information, please contact: [phone] * Full Code (Latest Code Status on File) Date Activated Date Inactivated Comments 06/09/2020 11:53 AM 06/09/2020 7:45 PM Care Teams Chain Testing Machine Operator Relationship Specialty Start Date End Date Spencer Ramirez MD [address] [place] [address] [address] [place] [address] PCP - General Internal Medicine 12/01/19
[2025-05-06 20:42] VITALS: BP 118/70; PULSE 86; RESP 16; TEMP 36.9; O2SAT 97
--- NOTE | 2025-05-06 21:15 | ED_ITS ---
HPI - Animal Bite General Chief Complaint: Animal Bite Stated Complaint: dog bite Time Seen by Provider: 05/06/25 20:56 History of Present Illness HPI narrative: 34-year-old otherwise healthy female presenting to the emergency room with a dog bite to her left hand. 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 Bleeding is controlled there are 2 very small puncture wounds to the left wrist near the base of the thumb. No restricted range of motion, no purulent drainage. No recent antibiotic use or allergies antibiotics. Patient was otherwise in her normal state of health denies any other complaints. Did not take anything for pain prior to arrival. Related Data Allergies Allergy/AdvReac Type Severity Reaction Status Date / Time adhesive Allergy Rash Verified 05/06/25 20:22 suture Allergy Rash Verified 05/06/25 20:22 Review of Systems Review of Systems: As reviewed above in HPI PMFSH Past Medical History Medical History Anxiety Bronchitis Sinus infection No active medical problems Surgical History Surgical History H/O lumpectomy (~2018) Status post Mohs surgery (~2022) History of inguinal hernia repair (~2016) H/O foot surgery (~2022) Family History Family History Father Heart disease Hypertension Mother Depression Anxiety Thyroid disorder Sibling Anxiety Depression Alcoholism Grandparent Cancer Cerebrovascular accident Heart disease Social History Social History Smoking status: Never smoker Gender identity (if verbalized by the patient): Female Sexual Orientation (if Verbalized by the Patient): Straight or Heterosexual Exam Narrative: GENERAL: [Well-appearing, well-nourished, and in no acute distress.] HEAD: [Normocephalic, atraumatic.] EYES: [PERRLA and EOMI.] ENT: Nares clear, no rhinorrhea or epistaxis. Mucous membranes moist. NECK: Supple. CHEST: [Clear to auscultation. No respiratory distress.] HEART: [Regular rate and rhythm]. No murmur heard. [Normal peripheral pulses.] ABDOMEN: [Soft, nondistended], [nontender], [No rigidity or guarding] EXTREMITIES: Good range of motion, able to oppose each digit, make a thumbs-up sign and okay sign without difficulty. Good strength in the hand and wrist. Two small punctate gomez at the base left thumb on the dorsal aspect without any bleeding or significant depth or wound involvement. A purulent drainage or bleeding. SKIN: Warm, dry, no rash. NEURO: [No focal deficits]. Alert and oriented [x3.] PSYCH: [Normal mood and affect.] Course Vital Signs Vital signs: Vital Signs Temperature 36.9 C 05/06/25 20:42 Pulse Rate 86 05/06/25 20:42 Respiratory Rate 16 05/06/25 20:42 Blood Pressure 118/70 05/06/25 20:42 Pulse Oximetry 97 05/06/25 20:42 Oxygen Delivery Room Air 05/06/25 20:42 Temperature 36.9 C 05/06/25 20:42 Pulse Rate 86 05/06/25 20:42 Respiratory Rate 16 05/06/25 20:42 Blood Pressure 118/70 05/06/25 20:42 Pulse Oximetry 97 05/06/25 20:42 Oxygen Delivery Room Air 05/06/25 20:42 MDM - Animal Bite MDM Narrative Medical decision making narrative: 34-year-old otherwise healthy female presenting to the emergency room with a dog bite to her left hand. 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 Bleeding is controlled there are 2 very small puncture wounds to the left wrist near the base of the thumb. No restricted range of motion, no purulent drainage. No recent antibiotic use or allergies antibiotics. Patient was otherwise in her normal state of health denies any other complaints. Did not take anything for pain prior to arrival. Exam reveals Good range of motion, able to oppose each digit, make a thumbs-up sign and okay sign without difficulty. Good strength in the hand and wrist. Two small punctate gomez at the base left thumb on the dorsal aspect without any bleeding or significant depth or wound involvement. A purulent drainage or bleeding. X-rays were obtained to assess for any retained foreign bodies although low suspicion. No signs of fracture or dislocation, no significant swelling. Normal vital signs and good distal pulsation/cap refill. She was given a dose of Augmentin, triple antibiotic ointment applied with bandage dressing, prescription for Augmentin and at the patient's request a prophylactic Diflucan dose for yeast infections. She was safely discharged with return precautions and follow-up instructions. Medical Records Attestation: I reviewed the patient's medical records. Imaging Data Attestation: I personally reviewed and interpreted this imaging study as follows: Discharge Plan Discharge Clinical Impression: Dog bite of hand Patient Disposition: Home Condition: Stable Instructions: Antibiotic Form, Animal Bite (ED) Additional Instructions: Take the prescribed antibiotic for the next 7 days, keep the area clean and covered. You can apply topical Neosporin antibiotic ointment as well if needed. Take ibuprofen up to 400 mg every 6-8 hours for pain control inflammatory control. Apply ice up to 20 minutes at a time. Return if you start noticing signs of infection such as purulent drainage, worsening pain or swelling, fevers, difficulty moving the digits or any other emergent concerns. Follow-up with your doctor outpatient. Patient Language: Polish Prescriptions: New amoxicillin-pot clavulanate 875-125 mg tablet 1 tablet PO Q12H 7 Days Qty: 14 0RF fluconazole 150 mg tablet 150 mg PO ONCE Qty: 1 0RF Rx Instructions: as a single dose Follow-up/Referrals: UNKNOWN,DOCTOR [Primary Care Provider] - Time of Disposition: 21:15
--- OUTSIDE RECORDS SUMMARY | 2025-05-06 21:33 | XMS_ITS | Encounter Summary ---
Author Organization [facility] Address [address] [place] [address] Care Team Providers Care Teacher Aide Name Role Phone Spencer Ramirez MD Primary Care Provider [phone] Encounter Details Date Type Department Care Team (Late st Contact Info) Description 04/02/2025 Results Follow-Up [facility] [place] [address] [address] [address] [address] Dennise Ortiz MD [address] [place] [address] LIPID PANEL, COMPREHENSIVE METABOLIC PANEL, [...] on filedocumented in this encounter Care Teams Teacher Aide Relationship Specialty Start Date End Date Spencer Ramirez MD [address] [place] [address] [address] PCP - General Internal Medicine 12/01/19 documented as of this encounter
--- OUTSIDE RECORDS SUMMARY | 2025-05-06 21:33 | XMS_ITS | Encounter Summary ---
Author Organization [employer] Address [address] [place] [address] Care Team Providers Care Police Captain Name Role Phone Spencer Ramirez MD Primary Care Provider [phone] Encounter Details Date Type Department Care Team [...] on filedocumented in this encounter Care Teams Police Captain Relationship Specialty Start Date End Date Spencer Ramirez MD [address] [place] [address] PCP - General Internal Medicine 12/01/19 documented as of this encounter
--- OUTSIDE RECORDS SUMMARY | 2025-05-06 21:33 | XMS_ITS | Clinical Summary ---
Author Organization [facility] [employer] [place] Address [address] [place] [address] Care Team Providers Care Corn Husk Baler Name Role Phone Spencer Ramirez MD Primary Care Provider [phone] Allergies Active Allergy Reactions Criticality Noted Date [...] 1 Active fluticasone propionate (FLONASE) 50 mcg/spray [place], Suspension nasal inhalerIndicati ons:Upper respiratory tract infection, [...] [facility] ABSTRACTION Provider, Abstract 04/02/2025 Results Follow-Up [facility] [employer] [place] [address] [place] [address] Dennise Ortiz MD LIPID PANEL, COMPREHENSIVE METABOLIC PANEL, CBC WITH DIFFERENTIAL, TSH 04/01/2025 9:00 AM CDT Office Visit [facility] [employer] [place] [address] [place] [address] Screening for condition (Primary Dx) 03/10/2025 External [facility] Comment: Test Performed at: [facility] [address] [place] [address] Vineet Rodriguez MD Blood 04/01/2025 8:40 AM CDT 04/02/2025 2:27 AM CDT us Dennise Ortiz MD HEMATOLOGY ORDERABLES Final Re sult Performing Organization Address [facility] de Phone Number [facility] [phone] [facility] [address] [place] [address] * TSH (04/01/2025 8:40 AM CDT) TSH 2.24 mIU/L [facility] Comment: Reference Range > or = 20 Years 0.40-4.50 Ranges First trimester 0.26-2.66 Second trimester 0.55-2.73 Third trimester 0.43-2.91 Test Performed at: [facility] [address] [place] [address] Vineet Rodriguez MD Blood 04/01/2025 8:40 AM CDT 04/02/2025 2:27 AM CDT us Dennise Ortiz MD CHEMISTRY ORDERABLES Final Res ult Performing Organization Address [facility] Co de Phone Number [facility] [phone] [facility] [address] [place] [address] * LIPID PANEL (04/01/2025 8:40 AM CDT) Pathologist [facility] CHOLESTEROL 167 <200 mg/dL [facility] HDL 81 > OR = 50 [...] LDL-C. Solis SS et al. EUN. 2013;310(19): 6367-8192 (http://education.MyEdu/faq/DRJ984) CHOL/HDL RATIO 2.1 <5.0 (calc) [facility] NON-HDL CHOLESTEROL 86 <130 mg/dL (calc) [facility] Comment: For patients with diabetes plus 1 major ASCVD risk factor, treating to a non-HDL-C goal of <100 mg/dL (LDL-C of <70 mg/dL) is considered a therapeutic option. Test Performed at: [facility] [address] [place] [address] Vineet Rodriguez MD Blood 04/01/2025 8:40 AM CDT 04/02/2025 2:27 AM CDT us Dennise Ortiz MD CHEMISTRY ORDERABLES Final Res ult [facility] [phone] [facility] [address] [place] [address] * (ABNORMAL) COMPREHENSIVE METABOLIC PANEL (04/01/2025 8:40 AM CDT) Pathologist [facility] GLUCOSE 79 65 - 99 mg/dL [facility] Comment: Fasting reference interval BUN 12 7 - 25 mg/dL [facility] CREATININE 0.75 0.50 - 0.97 mg/dL [...] [facility] Comment: Test Performed at: [facility] [address] [facility] [place] [address] Vineet Rodriguez MD Blood 04/01/2025 8:40 AM CDT 04/02/2025 2:27 AM CDT us Dennise Ortiz MD CHEMISTRY ORDERABLES Final Res ult [facility] [phone] [facility] [address] [facility] [place] [address] from Last 3 Months Insurance ALLEGIANCE OPEN ACCESS * Guarantor: [employer] Account Type Relation to Patient Date of Phone Billing Address Corporate Employer ATTN: JEROME WHIPPLE [address] [address] Advance Directives For more information, please contact: [phone] * Full Code (Latest Code Status on File) Date Activated Date Inactivated Comments 06/09/2020 11:53 AM 06/09/2020 7:45 PM Care Teams Corn Husk Baler Relationship Specialty Start Date End Date Spencer Ramirez MD [address] [place] [address] [address] [place] [address] PCP - General Internal Medicine 12/01/19
[2025-05-06] MEDS: NEOMYCIN/POLYMYXIN/BACITRACIN OINTMENT 15 GM TUBE 1 APPLIC TOPICAL (21:39)
== END 2025-05-06 21:53 | disposition home or self-care (01) ==
LOC: ANHED 21:31
PROVIDERS: Emergency Provider Student in an Organized Health Care Education/Training Program
DX: S61.452A Open bite of left hand, initial encounter (principal); W54.0XXA Bitten by dog, initial encounter; F41.9 Anxiety disorder, unspecified
CPT/HCPCS: 73130; 99283; A9270

== ENCOUNTER 2025-10-06 08:59 | Emergency (ER) | payer OTHER, SELFPAY ==
[2025-10-06 09:09] VITALS: BP 104/72; PULSE 94; RESP 16; TEMP 37.3; O2SAT 97
--- NOTE | 2025-10-06 09:39 | ED.URI ---
HPI - URI/Sore Throat General Chief Complaint: Upper Respiratory Infection Stated Complaint: Fever/Cough Time Seen by Provider: 10/06/25 09:15 Source: patient and RN notes reviewed Mode of arrival: ambulatory Limitations: no limitations History of Present Illness HPI Narrative: 35-year-old female patient presents Express Care complaining of upper respiratory symptoms that started approximately 2 days ago. Patient reports cough, fevers, chills, congestion, and runny nose. Patient denies any other upper respiratory symptoms, patient denies any chest pain, difficulty breathing, nausea vomiting, diarrhea, or any other symptoms. Patient has taken Tylenol and ibuprofen to help with symptoms. Patient denies any significant past medical problems Related Data Home Medications ?Medication ?Instructions ?Recorded ?Confirmed ?Last Taken ?Type rosuvastatin 5 mg tablet 5 mg PO DAILY 09/25/25 09/25/25 Unknown History valacyclovir 500 mg tablet 500 mg PO DAILY 09/25/25 09/25/25 Unknown History Allergies Allergy/AdvReac Type Severity Reaction Status Date / Time adhesive Allergy Rash Verified 09/25/25 07:51 suture Allergy Rash Verified 09/25/25 07:51 Review of Systems Review of Systems: CONSTITUTIONAL: Denies fever, chills, or sweats. EYES: Denies visual changes, redness, or discharge. ENT: Denies sore throat, or otalgia. Positive for congestion and rhinorrhea. CARDIOVASCULAR: Denies chest pain, palpitations, or edema. RESPIRATORY: Positive for cough. Negative for wheezing or Dyspnea. GASTROINTESTINAL: Denies abdominal pain, nausea, vomiting, or diarrhea. GENITOURINARY: Denies dysuria or hematuria. SKIN: Denies rash or itching. MUSCULOSKELETAL: Denies back pain, joint pain, or myalgia. NEUROLOGIC: Denies headache, numbness, or weakness. PSYCHIATRIC: Denies anxiety or depression. All other systems reviewed are negative, except as documented in HPI. [facility] Past Medical History Medical History Ovarian cyst HX Vaginal discharge Hyperlipidemia Anxiety Bronchitis Sinus infection No active medical problems Surgical History Surgical History H/O lumpectomy (~2018) Status post Mohs surgery (~2022) History of inguinal hernia repair (~2016) H/O foot surgery (~2022) Family History Family History Father Heart disease Hypertension Mother Depression Anxiety Thyroid disorder Sibling Anxiety Depression Alcoholism Grandparent Cancer Cerebrovascular accident Heart disease Social History Social History Smoking status: Never smoker Alcohol intake: current Drinks per week: 4 Substance use: never Substance use type: does not use Lack of Transportation: No Lack of Food: Never True Current Housing: I Have Housing Concerned About Future Housing: No Difficulty Paying Gas/Electric Bills: No Difficulty Paying for Meds: No Currently Unemployed: No Education: Bachelor's Degree Difficulty w/ Childcare or Family Care: No Living arrangements: with family Additional living arrangements comments: Occupation/Education: occupation Gender identity (if verbalized by the patient): Female Sexual Orientation (if Verbalized by the Patient): Straight or Heterosexual Comments At the time of my signature, I reviewed and agree with the nursing past medical, surgical, social, and family history. There is no relevant family history pertinent to the patient complaint. Exam Narrative: GENERAL: This is a well-nourished, well-developed adult, in no apparent distress. They are non ill-appearing, nontoxic appearing. HEAD: normocephalic, atraumatic. EYES: Sclera clear/white. Conjunctiva normal. Vision is grossly intact. Extraocular movements intact EARS: External ears normal, auditory canals clear and without drainage, TMs normal without perforation. Hearing grossly intact. NOSE: External nose normal with no obvious nasal discharge, nasal turbinates erythematous, no rhinorrhea. THROAT: Mucous membranes moist, posterior pharynx erythematous Uvula midline. Postnasal drip present NECK: Neck supple, non-tender without lymphadenopathy, masses or thyromegaly. CARDIOVASCULAR: Regular rate and rhythm without murmurs, gallops, or rubs. RESPIRATORY: Clear to auscultation. Breath sounds equal bilaterally. No wheezes, rales, or rhonchi. SKIN: warm, Dry, intact with no suspicious lesions or rash, good texture and turgor. NEURO: awake, alert, and oriented to person, place and time. There were no obvious focal neurologic abnormalities. EXTREMITIES: No joint tenderness, effusion, or edema noted. BACK: Nontender without deformity. No CVA tenderness. Course Course Level of Care: Express Care Visit Vital Signs Vital signs: Vital Signs Temperature 99.1 F 10/06/25 09:09 Pulse Rate 94 10/06/25 09:09 Respiratory Rate 16 10/06/25 09:09 Blood Pressure 104/72 10/06/25 09:09 Pulse Oximetry 97 10/06/25 09:09 Temperature 99.1 F 10/06/25 09:09 Pulse Rate 94 10/06/25 09:09 Respiratory Rate 16 10/06/25 09:09 Blood Pressure 104/72 10/06/25 09:09 Pulse Oximetry 97 10/06/25 09:09 MDM MDM Narrative Medical decision making narrative: Rapid COVID and flu were negative. Symptoms likely viral in etiology. Discussed supportive care. Discussed physical exam findings. Advised supportive measures and signs/symptoms to go to the ER. Pt is appropriate for outpt treatment and f/u. Differential Diagnosis Differential Diagnosis: Differential diagnostic considerations for upper respiratory infection include upper respiratory infection, croup, otitis media, sinusitis, viral infection, bronchitis, influenza, pharyngitis, strep, uvulitis. Critical Care Time Critical Care Time Critical Care Time: No Discharge Plan Discharge Clinical Impression: Upper respiratory infection Qualifiers: URI type: unspecified viral URI Qualified Code(s): J06.9 - Acute upper respiratory infection, unspecified Patient Disposition: Home Condition: Stable Instructions: Antibiotic Form, Upper Respiratory Infection (ED) Additional Instructions: Your COVID and flu were negative today. Viral illness may last between 7-10 days; antibiotics do not cure viral illness and are NOT recommended at this time. Recommend antihistamine Zyrtec or Claritin as needed for congestion. You may take DayQuil and NyQuil [id number] for upper respiratory symptoms, do not take additional Tylenol if you take these medications as they already contain Tylenol in it. Follow the instructions on the bottle. Also, recommend symptomatic treatment includes: rest, fluids, and increase humidity of the air at home. You may take ibuprofen 600 mg to 800 mg every 6-8 hours. Do not exceed more than 800 mg of ibuprofen per dose. Do not exceed more than 3200 mg ibuprofen in a day. You may take up to 1000 mg Tylenol every 6-8 hours. Do not exceed 1000 mg per dose, do exceed more than 4000 mg of Tylenol in a day. Please schedule a follow-up visit with your personal physician for further evaluation and treatment within 3-5days. If you developed chest pain, breathing problems, vomiting, severe weakness, or any serious concerns, please go to the ER immediately. Patient Language: Armenian Prescriptions: No Action valacyclovir 500 mg tablet 500 mg PO DAILY rosuvastatin 5 mg tablet 5 mg PO DAILY fluconazole 150 mg tablet 150 mg PO ONCE Qty: 1 0RF Rx Instructions: as a single dose Follow-up/Referrals: PHYSICIAN,CLINICAL INFORMATICS STRATEGIST [Primary Care Provider, Internal Medicine] Time of Disposition: 09:32
[2025-10-06 10:02] LABS: EDCOVIDSCREEN Negative (Negative); EDINFLUASCREEN Negative (Negative); EDINFLUBSCREEN Negative (Negative)
== END 2025-10-06 09:38 | disposition home or self-care (01) ==
DX: J06.9 Acute upper respiratory infection, unspecified (principal); Z20.822 Contact with and (suspected) exposure to COVID-19; E78.5 Hyperlipidemia, unspecified
CPT/HCPCS: 87426; 87804; 99212; G0463

== ENCOUNTER 2025-10-21 09:23 | Emergency (ER) | payer OTHER, SELFPAY ==
[2025-10-21 09:30] VITALS: BP 104/65; PULSE 72; RESP 18; TEMP 36; O2SAT 100
--- NOTE | 2025-10-21 09:51 | ED.URI ---
HPI - URI/Sore Throat General Chief Complaint: Upper Respiratory Infection Stated Complaint: sore throat Time Seen by Provider: 10/21/25 09:52 Source: patient Mode of arrival: ambulatory Limitations: no limitations History of Present Illness HPI Narrative: 35-year-old female presents with complaint of sore throat for 1 week. No other symptoms. All systems reviewed and negative except as noted above. Related Data Home Medications ?Medication ?Instructions ?Recorded ?Confirmed ?Last Taken ?Type rosuvastatin 5 mg tablet 5 mg PO DAILY 09/25/25 09/25/25 Unknown History valacyclovir 500 mg tablet 500 mg PO DAILY 09/25/25 09/25/25 Unknown History Allergies Allergy/AdvReac Type Severity Reaction Status Date / Time adhesive Allergy Rash Verified 10/21/25 09:29 suture Allergy Rash Verified 10/21/25 09:29 [facility] Past Medical History Medical History Ovarian cyst HX Vaginal discharge Hyperlipidemia Anxiety Bronchitis Sinus infection No active medical problems Surgical History Surgical History H/O lumpectomy (~2018) Status post Mohs surgery (~2022) History of inguinal hernia repair (~2016) H/O foot surgery (~2022) Family History Family History Father Heart disease Hypertension Mother Depression Anxiety Thyroid disorder Sibling Anxiety Depression Alcoholism Grandparent Cancer Cerebrovascular accident Heart disease Social History Social History Smoking status: Never smoker Alcohol intake: current Drinks per week: 4 Substance use: never Substance use type: does not use Lack of Transportation: No Lack of Food: Never True Current Housing: I Have Housing Concerned About Future Housing: No Difficulty Paying Gas/Electric Bills: No Difficulty Paying for Meds: No Currently Unemployed: No Education: Bachelor's Degree Difficulty w/ Childcare or Family Care: No Living arrangements: with family Additional living arrangements comments: Occupation/Education: occupation Gender identity (if verbalized by the patient): Female Sexual Orientation (if Verbalized by the Patient): Straight or Heterosexual Comments At time of signature, agree with nursing past medical, surgical, social and family history. There is no relevant family history pertinent to the presenting complaint. Exam Narrative: GENERAL: This is a well-nourished, well-developed patient, in no apparent distress. HEAD: normocephalic, atraumatic. EYES: PERRL. Sclera clear/white. Vision is grossly intact. EARS: External ears normal, auditory canals clear and without drainage, TMs normal without perforation. Hearing grossly intact. NOSE: External nose normal with no obvious nasal discharge, nares without redness, no rhinorrhea. THROAT: Mucous membranes moist, Erythematous with mild swelling. No exudates. NECK: Neck supple, non-tender without lymphadenopathy, masses or thyromegaly. CARDIOVASCULAR: Regular rate and rhythm without murmurs, gallops, or rubs. RESPIRATORY: Clear to auscultation. Breath sounds equal bilaterally. No wheezes, rales, or rhonchi. SKIN: warm, Dry, intact with no suspicious lesions or rash, good texture and turgor. NEURO: awake, alert, and oriented to person, place and time. There were no obvious focal neurologic abnormalities. EXTREMITIES: No joint tenderness, effusion, or edema noted. Course Course Level of Care: Express Care Visit Vital Signs Vital signs: Vital Signs Temperature 36.0 C L 10/21/25 09:30 Pulse Rate 72 10/21/25 09:30 Respiratory Rate 18 10/21/25 09:30 Blood Pressure 104/65 10/21/25 09:30 Pulse Oximetry 100 10/21/25 09:30 Oxygen Delivery Room Air 10/21/25 09:30 Temperature 36.0 C L 10/21/25 09:30 Pulse Rate 72 10/21/25 09:30 Respiratory Rate 18 10/21/25 09:30 Blood Pressure 104/65 10/21/25 09:30 Pulse Oximetry 100 10/21/25 09:30 Oxygen Delivery Room Air 10/21/25 09:30 Reviewed MDM MDM Narrative Medical decision making narrative: positive rapid strep. Will treat with antibiotic. Patient is well-appearing, nontoxic. Differential Diagnosis Differential Diagnosis: Differential diagnostic considerations for upper respiratory infection include upper respiratory infection, croup, otitis media, sinusitis, viral infection, bronchitis, influenza, pharyngitis, strep, uvulitis.? Discharge Plan Discharge Clinical Impression: Strep throat Patient Disposition: Home Condition: Stable Instructions: Antibiotic Form, Strep Throat (ED) Additional Instructions: your strep test was positive today. Take antibiotic as prescribed until gone. Change toothbrush after taking antibiotic for 24 hours. Take Tylenol or ibuprofen every 6-8 hours as needed for pain and fever. Drink plenty of water and rest. See your doctor if symptoms are not improving. Patient Language: Paraguayan Prescriptions: New amoxicillin 500 mg capsule 500 mg PO Q12H 10 Days Qty: 20 0RF No Action valacyclovir 500 mg tablet 500 mg PO DAILY rosuvastatin 5 mg tablet 5 mg PO DAILY Follow-up/Referrals: Ashley,Spencer Muñiz MD [Primary Care Provider] Time of Disposition: 09:57
[2025-10-21 10:03] LABS: EDCOVIDSCREEN Negative (Negative); EDINFLUASCREEN Negative (Negative); EDINFLUBSCREEN Negative (Negative)
[2025-10-21 10:04] LABS: EDSTREPNEGPOS1 Positive (Negative)
== END 2025-10-21 09:58 | disposition home or self-care (01) ==
PROVIDERS: Emergency Provider Nurse Practitioner Family; PCP Internal Medicine
DX: J02.0 Streptococcal pharyngitis (principal); Z20.822 Contact with and (suspected) exposure to COVID-19; E78.5 Hyperlipidemia, unspecified
CPT/HCPCS: 87426; 87804; 87880; 99213; G0463